=== PATIENT | female | born 1975 | race Caucasian/White ===

== ENCOUNTER 2016-11-01 17:12 | Emergency (ER) | payer OTHER ==
[2016-11-01 17:18] VITALS: TEMP 98.1
[2016-11-01] MEDS ORDERED: NS 500 ML IV ONE (17:47)
[2016-11-01] MEDS ORDERED: MAALOX/LIDO/HYOSC GI COCKTAIL 55 ML BOTTLE PO ONE (17:55)
[2016-11-01] MEDS ORDERED: ONDANSETRON 4 MG/2 ML VIAL IVP ONE (17:55)
[2016-11-01] MEDS ORDERED: PANTOPRAZOLE SODIUM 40 MG VIAL IVP ONE (17:55)
--- NOTE | 2016-11-01 17:55 | EDPHY ---
General Narrative: CHIEF COMPLAINT: Chest burning HISTORY OF PRESENT ILLNESS: Chest pain / burning that started last evening. This was a retrosternal pain that radiates left and right. Does not radiate to the back. Very mild to moderate burning sensation. No worse with exertion. Constant in duration. Did have some nausea but no vomiting. No shortness of breath but did feel her chest was heavy. No fever or chills. No cough. No abdominal urinary complaints. No recent travel or surgery. No history of venous thrombolic event. No exogenous estrogen use. She is not a smoker. She reports that she has GERD and she feels that is what this is but she was concerned because of her children. She did feel that she had a viral illness last week that she got over. No other associated complaints or modifying factors. FAMILY HISTORY CARDIAC: Grandfather had an MD at age 50 PRIOR CARDIAC WORKUP: none REVIEW OF SYSTEMS: Ten systems reviewed and are negative unless otherwise noted in the HPI EXAMINATION: General Appearance: Alert, no distress Head: normocephalic, atraumatic Eyes: Pupils equal and round, no conjunctival pallor or injection ENT, Mouth: Mucous membranes moist. Uvula midline. No erythema or edema Neck: Normal inspection, supple, non-tender. No meningismus Respiratory: Lungs are clear to auscultation. No wheezing, rhonchi or crackles Cardiovascular: Regular rate and rhythm no murmur. Pulses intact distally. Gastrointestinal: Abdomen is soft and nontender . No tympany. No rigidity. Nonacute abdomen. Back: non-tender, no bony abnormalities Neurological: A&O, nonfocal, normal gait Skin: Warm and dry, no rash Extremities: Nontender, no pedal edema Psychiatric: Mood and affect normal DIFFERENTIAL DIAGNOSES: Including but not limited to in no particular order: Acute Chest Pain, ACS, Stable Angina, Pneumonia, PE, duodenitis, gastritis, esophagitis, GERD MDM: 5:50 p.m. chest pain and burning that are more consistent with GERD than others on the differential. Vital signs are stable. She does not have any vital signs that would suggest PE, nor does she have any history that would suggest it. EKG is currently being obtained. I have ordered cardiac labs, Protonix, IV fluids, try GI cocktail. She is resting comfortably in no acute distress. 7:10 p.m. chest pain that has been constant since last evening. This pain is mild to moderate. It is nonexertional. No nausea, vomiting or diaphoresis. Troponin is negative. EKG unremarkable. No shortness of breath. Her vital signs were well within normal limits. She has no history of VTE, she has no risk factors of VTE, and her examination has no indication of this. Her examination history are most consistent with GERD of all on the differential list. She is comfortable being discharged home with Protonix in addition to her Prilosec. She is already discuss GI follow-up with her primary care physican will continue to do this. She has strict return to emergency department precautions for any worsening of her pain, any exertional pain, diaphoresis or vomiting. She and her spouse are comfortable with this plan. EKG: Interpreted by Dr. Webb SUPERVISION: This patient was independently evaluated without the aide of supervising physician. Case discussed with Dr. Webb - History Smoking Status: Never smoked - Objective Vital Signs: Initial Vital Signs Temperature (C) 98.1 F 11/01/16 17:16 Heart Rate 85 11/01/16 17:16 Respiratory Rate 17 11/01/16 17:16 Blood Pressure 109/90 H 11/01/16 17:16 O2 Sat (%) 97 11/01/16 17:16 O2 Delivery Mode Room Air Allergies/Adverse Reactions: No Known Allergies Allergy (Verified 11/01/16 17:15) Home Medications: Medication Instructions Recorded Antacid 11/01/16 Pantoprazole Sodium [Protonix 40mg 40 mg PO BID #20 tab 11/01/16 (*)] Sucralfate [Carafate Suspension] 100 mg PO Q8 PRN #240 ml 11/01/16 Laboratory Results: Laboratory Results 11/01/16 18:00 11/01/16 18:00 11/01/16 11/01/16 11/01/16 18:00 18:00 18:00 WBC RBC Hgb Hct MCV MCH MCHC RDW Plt Count MPV Neut % (Auto) Lymph % (Auto) Slope % (Auto) Eos % (Auto) Baso % (Auto) Nucleat RBC Rel Count Absolute Neuts (auto) Absolute Lymphs (auto) Absolute Monos (auto) Absolute Eos (auto) Absolute Basos (auto) Absolute Nucleated RBC Immature Gran % Immature Gran # PT 13.8 SEC SEC (12.0-15.0) INR 1.07 (0.83-1.16) APTT 28.4 SEC SEC (23.0-38.0) Sodium 140 mEq/L mEq/L (134-144) Potassium 3.8 mEq/L mEq/L (3.5-5.2) Chloride 108 mEq/L mEq/L (97-110) Carbon Dioxide 23 mEq/l mEq/l (22-31) Anion Gap 9 mEq/L mEq/L (8-16) BUN 9 mg/dL mg/dL (7-23) Creatinine 0.7 mg/dL mg/dL (0.6-1.0) Estimated GFR > 60 Glucose 116 mg/dL H mg/dL (70-100) Calcium 10.3 mg/dL mg/dL (8.5-10.4) Total Bilirubin 1.0 mg/dL mg/dL (0.1-1.4) Conjugated Bilirubin 0.3 mg/dL mg/dL (0.0-0.5) Unconjugated Bilirubin 0.7 mg/dL mg/dL (0.0-1.1) AST 22 IU/L IU/L (14-46) ALT 27 IU/L IU/L (9-52) Alkaline Phosphatase 48 IU/L IU/L (38-126) Troponin I < 0.012 ng/mL ng/mL (0-0.034) NT-Pro-B Natriuret Pep 64 pg/mL pg/mL (0-125) Total Protein 7.5 g/dL g/dL (6.3-8.2) Albumin 4.6 g/dL g/dL (3.5-5.0) Lipase 110.0 IU/L IU/L (23-300) Beta HCG, Qual NEGATIVE 11/01/16 18:00 WBC 10.27 10^3/uL H 10^3/uL (3.80-9.50) RBC 4.52 10^6/uL 10^6/uL (4.18-5.33) Hgb 14.2 g/dL g/dL (12.6-16.3) Hct 40.9 % % (38.0-47.0) MCV 90.5 fL fL (81.5-99.8) MCH 31.4 pg pg (27.9-34.1) MCHC 34.7 g/dL g/dL (32.4-36.7) RDW 11.8 % % (11.5-15.2) Plt Count 411 10^3/uL H 10^3/uL (150-400) MPV 9.9 fL fL (8.7-11.7) Neut % (Auto) 74.0 % % (39.3-74.2) Lymph % (Auto) 18.8 % % (15.0-45.0) Slope % (Auto) 4.6 % % (4.5-13.0) Eos % (Auto) 1.9 % % (0.6-7.6) Baso % (Auto) 0.4 % % (0.3-1.7) Nucleat RBC Rel Count 0.0 % % (0.0-0.2) Absolute Neuts (auto) 7.61 10^3/uL H 10^3/uL (1.70-6.50) Absolute Lymphs (auto) 1.93 10^3/uL 10^3/uL (1.00-3.00) Absolute Monos (auto) 0.47 10^3/uL 10^3/uL (0.30-0.80) Absolute Eos (auto) 0.19 10^3/uL 10^3/uL (0.03-0.40) Absolute Basos (auto) 0.04 10^3/uL 10^3/uL (0.02-0.10) Absolute Nucleated RBC 0.00 10^3/uL 10^3/uL (0-0.01) Immature Gran % 0.3 % % (0.0-1.1) Immature Gran # 0.03 10^3/uL 10^3/uL (0.00-0.10) PT INR APTT Sodium Potassium Chloride Carbon Dioxide Anion Gap BUN Creatinine Estimated GFR Glucose Calcium Total Bilirubin Conjugated Bilirubin Unconjugated Bilirubin AST ALT Alkaline Phosphatase Troponin I NT-Pro-B Natriuret Pep Total Protein Albumin Lipase Beta HCG, Qual Medications Given: Discontinued Medications Sodium Chloride (Ns) 500 mls @ 0 mls/hr IV ONCE ONE PRN Reason: As Directed Stop: 11/01/16 17:48 Last Admin: 11/01/16 17:55 Dose: 500 mls Miscellaneous Medication (Gi Cocktail) 55 ml PO EDNOW ONE Stop: 11/01/16 17:56 Last Admin: 11/01/16 17:55 Dose: 55 ml Ondansetron HCl (Zofran) 4 mg IVP EDNOW ONE Stop: 11/01/16 17:56 Last Admin: 11/01/16 17:55 Dose: 4 mg Pantoprazole Sodium (Protonix) 40 mg IVP EDNOW ONE Stop: 11/01/16 17:56 Last Admin: 11/01/16 17:55 Dose: 40 mg Departure - Departure Disposition: Home, Routine, Self-Care Clinical Impression: Chest pain Qualifiers: Chest pain type: unspecified Qualified Code(s): R07.9 - Chest pain, unspecified GERD (gastroesophageal reflux disease) Qualifiers: Esophagitis presence: esophagitis presence not specified Qualified Code(s): K21.9 - Gastro-esophageal reflux disease without esophagitis Condition: Good Instructions: Chest Pain (ED), Gastroesophageal Reflux Disease (ED) Additional Instructions: Medications as discussed. Follow up with primary care physician. Return ER for any worsening of symptoms Referrals: Joshua Rasheed DO [Primary Care Provider] - As per Instructions Prescriptions: Pantoprazole Sodium [Protonix 40mg (*)] 40 mg PO BID #20 tab Sucralfate [Carafate Suspension] 100 mg PO Q8 PRN #240 ml PRN Reason: acid reflux
--- NOTE | 2016-11-01 17:57 | CPEKG ---
Heart Rate: 74 RR Interval: 811 P-R Interval: 144 QRSD Interval: 96 QT Interval: 396 QTC Interval: 440 P [place]: 56 QRS [place]: 50 T Wave [place]: 45 EKG Severity - NORMAL ECG - EKG Impression: SINUS RHYTHM Electronically Signed By: Sandy Webb 01-Nov-2016 18:25:08
[2016-11-01 18:12] LABS: % IMMATURE GRANULYOCYTES 0.3 % (0.0-1.1); ABSOLUTE IMMATURE GRANULOCYTES 0.03 10^3/uL (0.00-0.10); ADD DIFF? NO; ADD MORPH? NO; ADD SCAN? NO; ATYPICAL LYMPHOCYTE FLAG 0 (0-99); FRAGMENT RBC FLAG 0 (0-99); HEMATOCRIT 40.9 % (38.0-47.0); HEMOGLOBIN 14.2 g/dL (12.6-16.3); LEFT SHIFT FLG 0 (0-99); LIPEMIA HEMOLYSIS FLAG 90 (0-99); MEAN CELL HEMOGLOBIN 31.4 pg (27.9-34.1); MEAN CELL HEMOGLOBIN CONCENTR. 34.7 g/dL (32.4-36.7); MEAN CELL VOLUME 90.5 fL (81.5-99.8); MEAN PLATELET VOLUME 9.9 fL (8.7-11.7); PLATELET CLUMPS FLAG 0 (0-99); PLATELET COUNT 411 10^3/uL (150-400); RED BLOOD CELL COUNT 4.52 10^6/uL (4.18-5.33); RED CELL DISTRIBUTION WIDTH 11.8 % (11.5-15.2)
[2016-11-01 18:22] LABS: INR 1.07 (0.83-1.16); PROTIME(PATIENT) 13.8 SEC (12.0-15.0)
[2016-11-01 18:23] LABS: APTT 28.4 SEC (23.0-38.0)
[2016-11-01 18:27] LABS: ALANINE AMINOTRANSFERASE 27 IU/L (9-52); ALBUMIN 4.6 g/dL (3.5-5.0); ALKALINE PHOSPHATASE 48 IU/L (38-126); ANION GAP 9 mEq/L (8-16); ASPARTATE AMINOTRANSFERASE 22 IU/L (14-46); BILIRUBIN-CONJUGATED 0.3 mg/dL (0.0-0.5); BILIRUBIN-UNCONJUGATED 0.7 mg/dL (0.0-1.1); CALCIUM 10.3 mg/dL (8.5-10.4); CARBON DIOXIDE 23 mEq/l (22-31); CHLORIDE 108 mEq/L (97-110); CREATININE 0.7 mg/dL (0.6-1.0); GLOMERULAR FILTRATION RATE > 60; GLUCOSE 116 mg/dL (70-100); POTASSIUM 3.8 mEq/L (3.5-5.2); SODIUM 140 mEq/L (134-144); TOTAL PROTEIN 7.5 g/dL (6.3-8.2)
[2016-11-01 18:38] LABS: TROPONIN I < 0.012 ng/mL (0-0.034)
[2016-11-01 19:16] VITALS: BP 129/80; PULSE 57; RESP 14
[2016-11-01 19:17] VITALS: O2SAT 96
== END 2016-11-01 19:40 | disposition home or self-care (01) ==
DX: K21.9 Gastro-esophageal reflux disease without esophagitis (principal)
CPT/HCPCS: 96374; J2405

== ENCOUNTER → 2016-11-24 | Outpatient (CLI) | payer OTHER | LOC: CIMAGING 10:01 | PROVIDERS: ATTEND Family Medicine | DX: R10.11 Right upper quadrant pain (principal) | CPT/HCPCS: 76705-PO ==

== ENCOUNTER → 2016-12-02 | Outpatient (CLI) | payer OTHER | LOC: FIMAGING 08:16 | PROVIDERS: ATTEND Internal Medicine Gastroenterology | DX: R10.11 Right upper quadrant pain (principal); K82.8 Other specified diseases of gallbladder | CPT/HCPCS: A9537 ==

== ENCOUNTER → 2016-12-15 | Outpatient (CLI) | payer OTHER ==
[~2016-12-15] MED LIST: IOPAMIDOL (ISOVUE-300) 100 ML BTL IV ONE
== END ==
LOC: CIMAGING 11:16
PROVIDERS: ATTEND Internal Medicine Gastroenterology
DX: K63.9 Disease of intestine, unspecified (principal)
CPT/HCPCS: 74177-PO; Q9967

== ENCOUNTER → 2017-12-15 | Outpatient (CLI) | payer OTHER | LOC: FIMAGING 08:17 | PROVIDERS: ATTEND Surgery | DX: R10.13 Epigastric pain (principal) | CPT/HCPCS: 78227; A9537 ==